=== PATIENT | female | born 1975 | race Caucasian/White ===

== ENCOUNTER → 2018-06-12 11:45 | Outpatient (CLI) | payer OTHER, SELFPAY ==
--- NOTE | 2018-06-12 11:47 | DI.MG.S_ITS ---
BILATERAL DIGITAL SCREENING MAMMOGRAM 3D/2D WITH CAD: 06/12/2018 CLINICAL: Routine screening. Comparison is made to exam dated: 08/23/2015 mammogram - [facility]. The tissue of both breasts is extremely dense, which lowers the sensitivity of mammography. Current study was also evaluated with a Computer Aided Detection (CAD) system. No significant masses, calcifications, or other findings are seen in either breast. There has been no significant interval change. IMPRESSION: NEGATIVE There is no mammographic evidence of malignancy. A 1 year screening mammogram is recommended. This exam was interpreted at Station ID: [id number]. NOTE: For mammograms, a report in lay terms will be sent to the patient. Approximately 15% of breast malignancies will not be visualized mammographically. In the management of a palpable breast mass, a negative mammogram must not discourage biopsy of a clinically suspicious lesion. Electronically Signed By: Sarahi stephenson/fabby:06/15/2018 09:06:35 letter sent: Normal Exam ACR BI-RADS Category 1: Negative 3341F
== END ==
DX: Z12.31 Encounter for screening mammogram for malignant neoplasm of breast (principal)
CPT/HCPCS: 77063; 77067

== ENCOUNTER → 2019-01-19 08:12 | Outpatient (CLI) | payer OTHER, SELFPAY ==
[2019-01-19 09:37] LABS: Add Manual Diff / Slide Review NO; Basophils Absolute Auto 0 /uL (0-100); Basophils Percent Auto 0.8 % (0-2); Eosinophils Absolute Auto 100 /uL (0-450); Eosinophils Percent Auto 1.4 % (2-4); Hematocrit 39.6 % (36-46); Hemoglobin 13.5 g/dL (12.0-16.0); Lymphocytes Absolute Auto 1000 /uL (1100-4500); Lymphocytes Percent Auto 24.1 % (25-40); Mean Corpuscular Hemoglobin 31.1 PG (26-34); Mean Corpuscular Volume 91.6 fL (80-100); Monocytes Absolute Auto 300 /uL (0-900); Monocytes Percent Auto 6.2 % (3-14); Neutrophils Absolute Auto 2900 /uL (1500-7000); Neutrophils Percent Auto 67.5 % (50-75); Platelet Count 227 X10^3/uL (150-400); Red Blood Cell Count 4.33 X10^6/uL (4.0-5.2); White Blood Cell Count 4.2 X10^3/uL (4.5-11.0)
[2019-01-19 09:55] LABS: Alanine Aminotransferase 16 IU/L (9-52); Albumin 4.3 g/dL (3.5-5.0); Albumin Globulin Ratio 1.5 (1.0-2.8); Alkaline Phosphatase 44 U/L (38-126); Aspartate Aminotransferase 18 IU/L (14-36); BUN Creatinine Ratio 21.3 (6-22); Bilirubin Total 0.5 mg/dL (0.2-1.3); Blood Urea Nitrogen 17 mg/dL (7-17); Calcium 9.1 mg/dL (8.4-10.2); Carbon Dioxide 26 mmol/L (22-32); Chloride 103 mmol/L (98-107); Cholesterol 125 mg/dL (140-199); Estimated Glomerular Filt Rate > 60.0 mL/min (>60); Globulin 2.9 g/dL (1.7-4.1); Glucose 83 mg/dL (70-100); HDL Cholesterol 46 mg/dL (40-60); HEMOLYSIS < 15 (0-50); LDL Cholesterol Calculated 63 mg/dL (<100); Potassium 4.5 mmol/L (3.4-5.1); Sodium 136 mmol/L (137-145); Total Protein 7.2 g/dL (6.3-8.2); Triglycerides 80 mg/dL (35-150)
[2019-01-19 10:36] LABS: TSH w/ Reflex to FT4 2.54 uIU/mL (0.47-4.68)
== END ==
PROVIDERS: PCP Nurse Practitioner; Visit Provider Nurse Practitioner
DX: Z00.00 Encounter for general adult medical examination without abnormal findings (principal)
CPT/HCPCS: 36415; 80053; 80061; 84443; 85025

== ENCOUNTER → 2022-11-20 07:14 | Outpatient (CLI) | payer OTHER, SELFPAY ==
--- NOTE | 2022-11-20 07:16 | DI.US.S_ITS ---
PROCEDURE: US PELVIC COMPLETE INDICATIONS: MENORRHAGIA TECHNIQUE: Real-time scanning was performed of the pelvic organs, with image documentation. Additional endovaginal scanning was necessary due to incomplete visualization of the adnexal and endometrial structures by transabdominal scanning. COMPARISON: [facility], , PELVIC COMPLETE, 09/10/2014, 5:43. FINDINGS: Uterus: Uterus is anteverted and enlarged in size at 9.2 x 4.6 x 6.8 cm. The myometrium is homogeneous. No discrete uterine fibroid is seen. The endometrium measures 10.1 mm combined thickness. No gross endometrial mass or fluid is seen. Ovaries: The right ovary measures 5.3 x 3.3 x 5.5 cm, with a calculated ovarian volume of 49.7 cc. The left ovary measures 3.3 x 2.3 x 2.8 cm, with a calculated ovarian volume of 11.1 cc. Less than 12 follicles can be seen in each ovary. Multiple anechoic structures are seen scattered in right ovary measures up to 3.4 x 2.5 x 3.4 cm in size. No adnexal masses are seen. Other: No pathologic free abdominal or pelvic fluid. Increased urine varices are noted in the pelvis. IMPRESSION: 1. Enlarged uterus. No discrete uterine fibroid. No endometrial mass or fluid. 2. Multiple simple appearing right ovarian cysts as above. No solid appearing ovarian lesion. No evidence of ovarian torsion. 3. Prominent uterine varices are noted in pelvis. We strive to produce accurate, complete, and clear reports of imaging services. To assist us in improving patient care, this report was composed using standard report templates and voice recognition software. Therefore, it may contain abnormal punctuation, insertions and/or omissions. Occasional wrong-word or sound-alike substitutions may occur. Though we review the report and make efforts to correct it, we do recommend that the report be read carefully in proper context to recognize any text inaccuracies. Dictated by: James Meredith M.D. on 11/20/2022 at 9:47 Approved by: James Meredith M.D. on 11/20/2022 at 9:50
--- NOTE | 2022-11-20 07:16 | DI.MG.S_ITS ---
BILATERAL DIGITAL SCREENING MAMMOGRAM 3D/2D WITH CAD: 11/20/2022 CLINICAL: Routine screening. Family history of breast cancer. Comparison is made to exams dated: 07/09/2022 mammogram - [facility], 06/12/2018 mammogram - [facility], and 08/23/2015 mammogram - [facility]. Both breasts are heterogeneously dense, which may obscure small masses (category c / 51-75% glandular tissue). Current study was also evaluated with a Computer Aided Detection (CAD) system. No significant masses, calcifications, or other findings are seen in either breast. There has been no significant interval change. IMPRESSION: NEGATIVE There is no mammographic evidence of malignancy. A 1 year screening mammogram is recommended. Future imaging is recommended as follows: 07/10/2023 screening mammogram. Based on the Tyrer Cuzick model (a risk assessment model) the patient's lifetime risk is 16.6% and her 10 year risk is 3.5%. According to the ACR, ACS, and NCCN guidelines, an annual breast MRI exam along with mammogram is recommended if the patient's lifetime risk is 20% or greater. This exam was interpreted at Station ID: [id number]. NOTE: For mammograms, a report in lay terms will be sent to the patient. Approximately 15% of breast malignancies will not be visualized mammographically. In the management of a palpable breast mass, a negative mammogram must not discourage biopsy of a clinically suspicious lesion. Electronically Signed By: Angie werner/fabby:11/20/2022 13:05:18 letter sent: Normal Exam ACR BI-RADS Category 1: Negative 3341F
[2022-11-20 07:40] LABS: Add Manual Diff / Slide Review NO; Basophils Absolute Auto 100 /uL (0-100); Basophils Percent Auto 1.1 % (0-2); Eosinophils Absolute Auto 100 /uL (0-450); Eosinophils Percent Auto 1.7 % (2-4); Hematocrit 39.1 % (36-46); Hemoglobin 13.5 g/dL (12.0-16.0); Lymphocytes Absolute Auto 1800 /uL (1100-4500); Lymphocytes Percent Auto 32.8 % (25-40); Mean Corpuscular HGB Conc 34.5 % (30-36); Mean Corpuscular Hemoglobin 30.6 PG (26-34); Mean Corpuscular Volume 88.7 fL (80-100); Monocytes Absolute Auto 500 /uL (0-900); Monocytes Percent Auto 8.6 % (3-14); Neutrophils Absolute Auto 3100 /uL (1500-7000); Neutrophils Percent Auto 55.8 % (50-75); Platelet Count 219 X10^3/uL (150-400); Red Blood Cell Count 4.41 X10^6/uL (4.0-5.2); White Blood Cell Count 5.5 X10^3/uL (4.5-11.0)
[2022-11-20 08:02] LABS: Alanine Aminotransferase 14 IU/L (<35); Albumin 4.4 g/dL (3.5-5.0); Albumin Globulin Ratio 1.4 (1.0-2.8); Alkaline Phosphatase 48 U/L (38-126); Aspartate Aminotransferase 20 IU/L (14-36); BUN Creatinine Ratio 23.6 (6-22); Bilirubin Total 0.5 mg/dL (0.2-1.3); Blood Urea Nitrogen 21 mg/dL (7-17); Calcium 9.4 mg/dL (8.4-10.2); Carbon Dioxide 26 mmol/L (22-32); Chloride 101 mmol/L (98-107); Cholesterol 162 mg/dL (140-199); Estimated Glomerular Filt Rate > 60 mL/min (>60); Globulin 3.2 g/dL (1.7-4.1); Glucose 84 mg/dL (70-100); HDL Cholesterol 59 mg/dL (40-60); HEMOLYSIS < 15 (0-50); LDL Cholesterol Calculated 85 mg/dL (<100); Potassium 4.1 mmol/L (3.4-5.1); Sodium 136 mmol/L (137-145); Total Protein 7.6 g/dL (6.3-8.2); Triglycerides 90 mg/dL (35-150)
[2022-11-20 08:19] LABS: Free T3, Triiodothyronine Free 4.37 pg/mL (2.77-5.27); Free T4, Direct Thyroxine 1.19 ng/dL (0.78-2.19)
[2022-11-20 08:32] LABS: Thyroid Stimulating Hormone 2.55 uIU/mL (0.47-4.68)
[2022-11-20 08:33] LABS: Creatinine Urine Random 140.4 mg/dL
[2022-11-20 08:38] LABS: Microalbumi Creatinin Ratio Ur 4.2 ug/mg CR (<30); Microalbumin Urine Random 0.6 mg/dL (0-1.6)
[2022-11-20 15:50] LABS: HIV 1 & 2 Ab/Ag 4th Gen Combo NEGATIVE (NEGATIVE); Hep C Virus Ab w/Reflex Quant NEGATIVE s/c (NEGATIVE)
== END ==
PROVIDERS: PCP Nurse Practitioner; Referring Provider Nurse Practitioner; Visit Provider Nurse Practitioner
DX: Z12.31 Encounter for screening mammogram for malignant neoplasm of breast (principal); Z80.3 Family history of malignant neoplasm of breast; Z00.00 Encounter for general adult medical examination without abnormal findings; N92.0 Excessive and frequent menstruation with regular cycle; N85.2 Hypertrophy of uterus; N83.201 Unspecified ovarian cyst, right side; Z11.4 Encounter for screening for human immunodeficiency virus [HIV]; Z11.59 Encounter for screening for other viral diseases
CPT/HCPCS: 36415; 76830; 76856; 77063; 77067; 80053; 80061; 82043; 82570; 84439; 84443; 84481; 85025; 86803; 87389; 93975

== ENCOUNTER 2023-01-08 12:39 | Day surgery (SDC) | payer OTHER, SELFPAY ==
[2023-01-08 13:11] VITALS: BP 120/74; PULSE 72; RESP 17; TEMP 36.4; O2SAT 100; BMI 23.0
[2023-01-08] MEDS: LACTATED RINGERS 1,000 ML 84 ML IV (13:18)
--- NOTE | 2023-01-08 14:11 | P.HP_ITS ---
History of Present Illness History of Present Illness Date Patient Seen: 01/08/23 Time Patient Seen: 14:11 Chief complaint: SDC Narrative: Karma is a 47-year-old woman who is here for a screening colonoscopy. She has never had 1 before. She has no known family history of colon cancer. [facility] Medical History (Updated 01/08/23 @ 14:11 by Chemo Sorto MD) Varicosities of pelvis Surgical History H/O LEEP Social History marital status: household members: family Smoking Status: Never smoker alcohol intake: never substance use type: does not use Meds Home Medications and Allergies Home Medications Medication Instructions Recorded Confirmed Type fexofenadine 180 mg tablet 180 mg PO DAILY 06/04/18 01/08/23 History fluticasone propionate 50 2 spray intranasal DAILY 06/04/18 01/08/23 History mcg/actuation nasal spray,suspension (Flonase Allergy Relief) Allergies Allergy/AdvReac Type Severity Reaction Status Date / Time No Known Drug Allergies Allergy Verified 11/04/22 14:26 Exam Vital Signs (past 8 hours): - 01/08/23 13:11 Temperature 97.6 F Pulse Rate 72 Respiratory Rate 17 Blood Pressure 120/74 Pulse Oximetry 100 Oxygen Delivery Method Room Air Oxygen Delivery Method Room Air Const General: healthy appearing Assessment & Plan Assessment and plan (1) Colon cancer screening: Status: Acute Plan We reviewed the risks and benefits of colonoscopy for colon cancer screening and she would like to proceed.
[2023-01-08 14:45] VITALS: BP 109/75; PULSE 86; RESP 15; TEMP 36.2; O2SAT 97
--- NOTE | 2023-01-08 14:45 | PM.OP.COLON ---
Operative Date/Time/Diagnoses Date of procedure: 01/08/23 Time of procedure: 14:45 Pre-op diagnosis: Colon cancer screening Post-op diagnosis: same Procedure & Clinicians Study performed: Colonoscopy Same procedure as scheduled: Yes Surgeon: Chemo Sorto Procedure Notes Procedure in detail: Surgeon: Chemo Sorto MD Anesthesia: Vidal Mondragon D.O. Procedure: The patient was brought to the endoscopy suite, placed in left lateral decubitus position. The patient was connected to monitoring devices. A time-out was performed. Sedation was administered. Once the patient was adequately sedated, a digital rectal exam was performed and was normal. The scope was then inserted and advanced to the cecum where the appendiceal orifice was identified and photographed. The scope was then slowly withdrawn over greater than 6 minutes. The prep was excellent. The mucosa was thoroughly inspected. No abnormalities were seen. The scope was retroflexed in the rectum. No abnormalities were seen. The scope was straightened and removed. The patient was awakened and brought to recovery. Scope withdrawal time: 6 minutes Sedation time: 16 minutes EBL: 0 Findings: Normal colon Post-procedure Recommendations: Colonoscopy in 10 years Disposition: PACU
[2023-01-08 14:50] VITALS: BP 119/78; PULSE 73; RESP 11; TEMP 36; O2SAT 100
[2023-01-08 14:55] VITALS: BP 117/78; PULSE 70; RESP 21; TEMP 36.4; O2SAT 100
[2023-01-08 14:58] VITALS: BP 112/77; PULSE 63; RESP 14; TEMP 36.3; O2SAT 100
== END 2023-01-08 15:30 | disposition home or self-care (01) ==
PROVIDERS: PCP Nurse Practitioner; Referring Provider Surgery; Visit Provider Surgery
PROC: 0DJD8ZZ Inspection of Lower Intestinal Tract, Via Natural or Artificial Opening Endoscopic (ICD-10-PCS; CPT 45378; principal; 2023-01-08 14:00)
DX: Z12.11 Encounter for screening for malignant neoplasm of colon (principal)
CPT/HCPCS: 45378; J2704

== ENCOUNTER 2023-06-25 08:14 | Inpatient (IN) | payer OTHER, SELFPAY ==
[2023-06-17 07:44] VITALS: BMI 22.5
[2023-06-25] VITALS (16 sets, daily range): BP systolic 80–124; BP diastolic 31–74; PULSE 56–69; RESP 10–20; TEMP 36.2–36.9; O2SAT 98–100; BMI 22.5
--- NOTE | 2023-06-25 | PATH_ITS ---
[facility] Accession Number: [id number] No. of containers..01 Tissue . 01 Material submitted: . uterus - UTERUS AND BILATERAL TUBES . 01 Diagnosis: Uterus and Bilateral Tubes; Hysterectomy and Bilateral Salpingectomy: Cervix: Mild chronic cervicitis; negative for dysplasia and malignancy. Endometrium: Secretory phase endometrium without significant cytologic atypia, hyperplasia, or malignancy. Benign endometrial polyp, 1.3 cm in greatest dimension. Adenomyosis also present. Benign intramural leiomyomas, up to 0.6 cm in greatest dimension. Benign bilateral fallopian tubes and paratubal cysts. [facility] 07/01/2023 1704 Local . 01 Electronically signed: . Shamika Carrero MD, Pathologist NPI- [id number] . 01 Gross description: . The specimen is received in formalin labeled with the patient's name, , and uterus with bilateral tubes, and consists of an intact uterus (143 grams, 8.5 cm superior to inferior, 8.9 cm medial to lateral, and 4.6 cm anterior to posterior), with attached cervix (3.2 x 3.0 cm), with two detached, unoriented, fimbriated fallopian tubes (6.8 x 0.7 cm and 6.2 x 0.5 cm respectively), with no additional adnexa identified. . The serosa is rob and roughened with no evidence of hemorrhage identified. The ectocervix is pink-rob, smooth, and glistening with a circular os measuring 0.5 cm in diameter. The anterior paracervical margin is inked blue while the posterior paracervical margin is inked black. The endocervical canal has rob herringbone mucosa and measures 2.7 cm in length. The endometrial cavity measures 2.5 cm from cornu to cornu, and 5.2 cm in length with red, lush endometrium that averages 0.2 cm thick. A red-rob polypoid structure detached from the endometrium measures 1.3 x 0.7 x 0.3 cm. No additional lesions are identified. The myometrium is pink-rob and trabecular with two well-circumscribed white whorled nodules located intramurally ranging from 0.2 to 0.6 cm in greatest dimension. No hemorrhage or necrosis is identified. . Both fallopian tubes have congested, smooth serosa with multiple cystic structures ranging from 0.1 to 0.2 cm in greatest dimension filled with cloudy serous fluid. Sectioning reveals unremarkable stellate lumen. . [employer] sections are submitted as follows: A1: Anterior cervix. A2: Posterior cervix. A3: Anterior full thickness section. A4: Posterior full thickness section. A5: Endometrial polypoid structure. A6: Nodules. A7: Serosa. A8: Longer fallopian tube to include one-half of bisected fimbriae and cross-sections. A9: [place] fallopian tube to include one-half of bisected fimbriae and cross-sections. ([id number]) /DOREEN 06/26/2023 1031 Local . 01 Pathologist provided ICD-10: N84.0, N92.0, N85.2, N94.6, D25.9 . 01 CPT . 505454 Specimen Comment: A courtesy copy of this report has been sent to [phone] Performed at: 01 [facility] [address] [place] [address], [place], [place] [id number] MD Ahmet Cummins MD Phone: [phone]
[2023-06-25] MEDS: LACTATED RINGERS 1,000 ML 42 ML IV ×2 (09:02→12:51)
[2023-06-25] MEDS: ACETAMINOPHEN 325 MG TABLET 975 MG PO (09:03)
[2023-06-25] MEDS: SCOPOLAMINE 1 PATCH TOP (09:03)
--- NOTE | 2023-06-25 09:51 | PM.PREOP ---
Pre-operative Note COVID-19 COVID-19 status: Not tested Interval Note History & Physical reviewed/Exam performed by Physician: Yes Changes to H&P: No
[2023-06-25] MEDS: CEFAZOLIN 2 GM/100 ML PREMIX 100 ML IV (10:05)
[2023-06-25] MEDS: BUPIVACAINE 0.5% (PF) 30 ML, EPINEPHrine 0.15 MG INJ (10:58)
[2023-06-25] MEDS: ROPIVACAINE 0.2% PF 2 MG/ML 10ML AMP 20 ML INJ (11:54)
--- NOTE | 2023-06-25 12:03 | PM.GYNOP.1 ---
Operative Date/Time/Diagnoses Date of procedure: 06/25/23 Time of procedure: 10:20 Pre-op diagnosis: Menometrorrhagia Enlarged uterus Post-op diagnosis: other ( same as above, pelvic adhesions, minimal pelvic endometriosis) Procedure & Clinicians Procedure: Procedures Operation Date: 06/25/23 09:45 Actual Procedure Side Surgeon p Laparoscopic Total Hysterectomy with bilateral salpingectomy Deshawn Tobin MD Indications: Karma is a 47-year-old , LMP 2 wks ago, who presents today in referral from her primary care provider for evaluation of extremely heavy periods, severe dysmenorrhea and chronic pelvic pain which has steadily worsened over the last 2 or 3 years. She experienced menarche at age 14 and has always had heavy but regular periods. She is had a single which resulted in a spontaneous vaginal 20 years ago. Menses remain regular but for the last 2-3 years her periods have become progressively more painful and heavy with passage of large clots and overflows occurring typically at around the 2nd and/or 3rd day of her cycle. She denies intermenstrual bleeding or postcoital bleeding however. She does have history of abnormal Paps with a LEEP performed in 2014 and normal, HPV negative Paps since that time with her most recent Pap performed on March 10, 2023. In discussing options for evaluation/treatment, patient is averse to use of hormones including but not limited to Depo-Provera, Nexplanon, Mirena, or oral contraceptives. Pelvic ultrasound performed in October 2022 showed: FINDINGS:? ?? Uterus:? Uterus is anteverted and enlarged in size at 9.2 x 4.6 x 6.8 cm. The myometrium is homogeneous.? No discrete uterine fibroid is seen.? The endometrium measures 10.1 mm combined thickness.? No gross endometrial mass or fluid is seen. ? Ovaries:? The right ovary measures 5.3 x 3.3 x 5.5 cm, with a calculated ovarian volume of 49.7 cc. The left ovary measures 3.3 x 2.3 x 2.8 cm, with a calculated ovarian volume of 11.1 cc.? Less than 12 follicles can be seen in each ovary.? Multiple anechoic structures are seen scattered in right ovary measures up to 3.4 x 2.5 x 3.4 cm in size.? No adnexal masses are seen. ? Other:? No pathologic free abdominal or pelvic fluid.? Increased uterine varices are noted in the pelvis.? ? IMPRESSION:? 1. Enlarged uterus.? No discrete uterine fibroid.? No endometrial mass or fluid. ? 2. Multiple simple appearing right ovarian cysts as above.? No solid appearing ovarian lesion.? No evidence of ovarian torsion. ? 3. Prominent uterine varices are noted in pelvis.? Options for further evaluation and/or treatment of the patient's menorrhagia, severe dysmenorrhea, and chronic pelvic pain discussed at length. Patient is averse to use of any hormone therapy due to previous experiences with such treatments and very much wants definitive therapy as opposed to considering endometrial ablation. As result we discussed total laparoscopic hysterectomy with bilateral salpingectomy and preservation of ovaries if those ovaries are normal in appearance at the time of surgery. Patient advised that endometrial sampling may be required by her insurance company prior to approving hysterectomy but the endometrial stripe by ultrasound is completely unremarkable and within normal limits as far as thickness goes therefore endometrial sampling was not felt to be warranted at this time. Surgical case request for total laparoscopic hysterectomy with bilateral salpingectomy submitted. She presents today for her scheduled procedure. Surgeon: Deshawn Tobin Director Strategic Account Management: Eileen Chaves Anesthesia Type: General Operative Notes Findings: The uterus is diffusely enlarged and has clear surface blebs consistent with adenomyosis. There were no abnormalities noted in the anterior cul-de-sac. Both fallopian tubes appeared to be normal. The anti-hilar surface of the left ovary is adherent to the lateral aspect of the uterus adjacent to the insertion of the uterosacral ligament on the left. Dense and filmy adhesions were also present on the posterior aspect of the cervix to the epiploica of the rectosigmoid. A peritoneal implant of endometriosis was also seen and coagulated during the course of the procedure. A superficial endometriotic implant involving the surface of the left ovary was also destroyed with bipolar current. The right fallopian tube and ovary were both normal and there was no adhesions in the right ovarian fossa. The remainder of the abdomen was normal to laparoscopic inspection. Closure Type: primary Specimen(s): left tube, right tube and uterus Applied: catheter Blood products transfused: none Procedure in detail: With the patient in modified dorsal lithotomy position preparations were made by prepping and draping the patient in usual manner for vaginal surgery and insertion of Ross catheter. A pre-surgical time-out was then taken in accordance with [facility] policy. A bivalve speculum was then placed in the vagina and the cervix visualized. The anterior lip of the cervix was then grasped with a single-tooth tenaculum. The uterus was sounded to [] cm, the endocervical canal dilated slightly, and a VCare uterine manipulator with a medium colpotomy cup was placed. The umbilicus was then infiltrated with 0.5% Marcaine with epinephrine. A 1 cm umbilical incision was made transversely and a Veress needle was used to insufflate the abdominal cavity with carbon dioxide. Once the abdomen was appropriately insufflated, a 5 mm trocar and sleeve were then placed through the umbilical incision. The scope was placed through the trocar and the initial assessment of the intra-abdominal contents carried out. A 2nd and 3rd 5 mm port was then placed 1st in the right mid quadrant from then the left mid quadrant by infiltration of the skin and subcutaneous tissues, a 1 cm transverse incision and insertion of the 5 mm bladeless port. Using a 3 puncture technique, the abdomen and pelvis were inspected laparoscopy and photographically documented. Uterus is mobilized with the VCare manipulator and attention turned to the left adnexa. The surface endometriosis of the left ovary was coagulated with bipolar current in the anti-hilar surface of the ovary was dissected away from the lateral aspect of the lower uterine segment/cervix using a combination of sharp and blunt dissection. Hemostasis was achieved with the power Seal device. The distal tube was then grasped and the fimbria ovarica divided after coagulation with the PowerSeal device. The dissection was then carried out toward the cornua and the fallopian tube amputated. The tube was removed through a 5 mm port and dissection was then carried down using the PowerSeal device so as to divide the utero-ovarian ligament and the round ligament with blunt and sharp dissection of the broad down to the level of the uterine artery. The uterine artery was then skeletonized after development of a bladder flap, coagulated, and divided. Once hemostasis was assured on the left side attention was turned to the right and the tube, utero-ovarian ligament, round ligament, and broad ligament were dissected in a fashion exactly the same as it had been on the left. The right uterine artery was then visualized after skeletonization and coagulated and divided. The uterus was seen to yumiko after coagulation of both your arteries and the cup was identified through the vaginal muscularis at its insertion with the body of the cervix. Circumferential excision of the vaginal cup was accomplished without difficulty using monopolar current and the uterus mobilized. The uterus was then removed through the vagina and the vaginal cuff closed [id number] with a series of 0 Vicryl [id number] stitches. Hemostasis was excellent, the abdomen was re-insufflated, and the pelvis inspected laparoscopically. The pelvis was inspected for any abnormality or bleeding, and the ureters were each seen to be peristalsing freely. With complete hemostasis assured, the pneumoperitoneum was vented and the ports removed. All of the 5 mm ports were then closed with 4-0 Monocryl on the skin using inverted interrupted sutures. Skin glue was placed and after the glue was dried, an appropriate dressing was applied. The case was then terminated, the patient awakened, and then transferred to PACU after having tolerated the procedure well. Complications: none Post-operative Condition: stable Disposition: PACU Plan for aftercare: Recovery in ambulatory surgery in discharge home later today if pain is under control and she is tolerating oral intake well.
[2023-06-25] MEDS: HYDROMORPHONE 1 MG INJ IV ×2 (12:10→12:15)
[2023-06-25] MEDS: OXYCODONE IR 5 MG TABLET PO ×3 (12:27→18:27)
[2023-06-25] MEDS: ONDANSETRON 4 MG/2 ML INJ IV (12:27)
[2023-06-25] MEDS: LACTATED RINGERS 1,000 ML 100 ML IV ×2 (13:45→23:11)
[2023-06-25] MEDS: IBUPROFEN 600 MG TABLET PO ×2 (18:26→22:57)
[2023-06-25] MEDS: ACETAMINOPHEN 325 MG TABLET 650 MG PO ×2 (18:27→22:58)
[2023-06-25] MEDS: DOCUSATE 100 MG CAPSULE 200 MG PO (21:49)
[2023-06-26 00:28] VITALS: BP 110/63; PULSE 70; RESP 16; TEMP 36.5; O2SAT 99
[2023-06-26] MEDS: IBUPROFEN 600 MG TABLET PO (04:59)
[2023-06-26] MEDS: ACETAMINOPHEN 325 MG TABLET 650 MG PO (04:59)
[2023-06-26 05:00] VITALS: BP 109/64; PULSE 60; RESP 18; TEMP 36.2; O2SAT 98
[2023-06-26 06:06] LABS: Add Manual Diff / Slide Review NO; Basophils Absolute Auto 0 /uL (0-100); Basophils Percent Auto 0.3 % (0-2); Eosinophils Absolute Auto 0 /uL (0-450); Eosinophils Percent Auto 0.1 % (2-4); Hematocrit 34.9 % (36-46); Hemoglobin 12.1 g/dL (12.0-16.0); Lymphocytes Absolute Auto 1300 /uL (1100-4500); Lymphocytes Percent Auto 14.9 % (25-40); Mean Corpuscular HGB Conc 34.5 % (30-36); Mean Corpuscular Hemoglobin 31.2 PG (26-34); Mean Corpuscular Volume 90.4 fL (80-100); Monocytes Absolute Auto 700 /uL (0-900); Monocytes Percent Auto 7.2 % (3-14); Neutrophils Absolute Auto 7000 /uL (1500-7000); Neutrophils Percent Auto 77.5 % (50-75); Platelet Count 185 X10^3/uL (150-400); Red Blood Cell Count 3.86 X10^6/uL (4.0-5.2); Red Cell Distribution Width 13.3 % (11.6-14.8)
--- NOTE | 2023-06-26 06:30 | PC.NURSE ---
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 x3 lap sites on abdomen, drsgs are CDI. 2-10/31 pain adequately controlled w/ scheduled Tylenol & Ibuprofen. OOB w/ SBA to bathroom, tolerated ambulation well. Denies nausea. Cody d/c'd @ 0500.
[2023-06-26 07:00] VITALS: BP 114/53; PULSE 51; RESP 18; TEMP 37.2; O2SAT 99
--- NOTE | 2023-06-26 08:37 | PC.NURSE ---
Day shift: Pt denies any nausea. Good oral intake and BP WNL. Disconnected from IV fluid for safety. Pt Voided 425 mls and bladder scan read 20 mls residual. Family in room for support. Pt expecting to d/c home today. Independent in room.
[2023-06-26] MEDS: DOCUSATE 100 MG CAPSULE 200 MG PO (09:16)
--- NOTE | 2023-06-26 09:34 | P.DS_ITS ---
History of Present Illness History of Present Illness Date Patient Seen: 06/26/23 Time Patient Seen: 09:35 Chief complaint: Menorrhagia, Bulky uterus Narrative: Kamra is a 47-year-old , LMP 2 wks ago, who presents today in referral from her primary care provider for evaluation of extremely heavy periods, severe dysmenorrhea and chronic pelvic pain which has steadily worsened over the last 2 or 3 years. She experienced menarche at age 14 and has always had heavy but regular periods. She is had a single which resulted in a spontaneous vaginal 20 years ago. Menses remain regular but for the last 2-3 years her periods have become progressively more painful and heavy with passage of large clots and overflows occurring typically at around the 2nd and/or 3rd day of her cycle. She denies intermenstrual bleeding or postcoital bleeding however. She does have history of abnormal Paps with a LEEP performed in 2014 and normal, HPV negative Paps since that time with her most recent Pap performed on March 10, 2023. In discussing options for evaluation/treatment, patient is averse to use of hormones including but not limited to Depo-Provera, Nexplanon, Mirena, or oral contraceptives. Pelvic ultrasound performed in October 2022 showed: FINDINGS:? ?? Uterus:? Uterus is anteverted and enlarged in size at 9.2 x 4.6 x 6.8 cm. The myometrium is homogeneous.? No discrete uterine fibroid is seen.? The endometrium measures 10.1 mm combined thickness.? No gross endometrial mass or fluid is seen. ? Ovaries:? The right ovary measures 5.3 x 3.3 x 5.5 cm, with a calculated ovarian volume of 49.7 cc. The left ovary measures 3.3 x 2.3 x 2.8 cm, with a calculated ovarian volume of 11.1 cc.? Less than 12 follicles can be seen in each ovary.? Multiple anechoic structures are seen scattered in right ovary measures up to 3.4 x 2.5 x 3.4 cm in size.? No adnexal masses are seen. ? Other:? No pathologic free abdominal or pelvic fluid.? Increased uterine varices are noted in the pelvis.? ? IMPRESSION:? 1. Enlarged uterus.? No discrete uterine fibroid.? No endometrial mass or fluid. ? 2. Multiple simple appearing right ovarian cysts as above.? No solid appearing ovarian lesion.? No evidence of ovarian torsion. ? 3. Prominent uterine varices are noted in pelvis.? Options for further evaluation and/or treatment of the patient's menorrhagia, severe dysmenorrhea, and chronic pelvic pain discussed at length. Patient is averse to use of any hormone therapy due to previous experiences with such treatments and very much wants definitive therapy as opposed to considering endometrial ablation. As result we discussed total laparoscopic hysterectomy with bilateral salpingectomy and preservation of ovaries if those ovaries are normal in appearance at the time of surgery. Patient advised that endometrial sampling may be required by her insurance company prior to approving hysterectomy but the endometrial stripe by ultrasound is completely unremarkable and within normal limits as far as thickness goes therefore endometrial sampling was not felt to be warranted at this time. Surgical case request for total laparoscopic hysterectomy with bilateral salpingectomy submitted. She is admitted now for her scheduled procedure. Discharge Providers Provider Date of admission: 06/25/23 08:14 Discharge Date: 06/26/23 Primary care physician: BLAISE Gutierrez Discharge provider: Deshawn Tobin MD Summary Hospital Course Discharge Diagnosis: Perimenopausal menorrhagia Uterine enlargement Hospital Course: Karma was admitted on 06/25/2023 and underwent uneventful total laparoscopic hysterectomy with bilateral salpingectomy. Full details of the procedure well summarized on my operative. Following surgery the patient has extremely well prompt return bowel and bladder function, she is ambulating independently, tolerating, her pain is pain medications. She will be discharged at this time to home in an afebrile normotensive condition after counseling regarding precautionary symptoms, limitations activity, medications, and plans for follow- up which will be in 2-3 weeks. Medications at discharge will include resumption all pre admission medications as well as oxycodone 5 mg p.o. Q 4-6 hours as needed pain, dispense 20 with no refills, and Cipro 500 mg p.o. b.i.d. x5 days for antibiotic prophylaxis following catheterization. Status at Discharge Cognitive/behavioral status at discharge: oriented Functional status at discharge: independent ambulation Overall status at discharge: patient is progressing back to baseline Time Spent with Patient Time spent: Less than 30 minutes Exam Vital Signs (past 8 hours): - 06/26/23 05:00 06/26/23 07:00 06/26/23 07:00 Temperature 97.2 F L 98.9 F Pulse Rate 60 51 L Respiratory Rate 18 18 Blood Pressure 109/64 114/53 L Pulse Oximetry 98 99 Oxygen Delivery Method Room Air Oxygen Flow Rate 0 0 Oxygen Delivery Method Room Air Oxygen Flow Rate 0 Const General: cooperative and comfortable Nutritional Appearance: average body habitus Orientation: alert and oriented x3 HENMT Head: normal to inspection, atraumatic and abrasion Ears: hearing grossly normal bilaterally Face and sinus: face symmetric Eyes General: appearance normal, both eyes and all related structures Conjunctivae: conjunctivae normal Sclera: sclerae normal EOM: EOM intact bilaterally Neck Neck: normal visual inspection Resp Effort & Inspection: normal respiratory effort and able to speak in complete sentences Auscultation: clear to auscultation bilaterally Cardio Rate: regular rate Rhythm: regular rhythm Heart Sounds: S1 normal, S2 normal and no murmurs GI Inspection: normal to inspection and incision (Surgical dressings clean and dry) Palpation: soft, no hepatosplenomegaly and tender (Mild, diffuse postsurgical tenderness) External Female Exam: other (No significant bleeding noted) Extrem General: no calf tenderness Psych Appearance: grossly normal Mental Status: mental status grossly normal Speech and Movement: speech and movement normal Mood: congruent mood Affect: normal affect Attitude: cooperative Thought Process: normal Thought Content: normal Judgment: judgment good Objective Labs 06/26/23 05:59 Labs: Laboratory Results - last 24 hr 06/26/23 05:59 WBC 9.0 RBC 3.86 L Hgb 12.1 Hct 34.9 L MCV 90.4 MCH 31.2 MCHC 34.5 RDW 13.3 Plt Count 185 Neut % (Auto) 77.5 H Lymph % (Auto) 14.[address] [place] % (Auto) 7.2 Eos % (Auto) 0.1 L Baso % (Auto) 0.3 Neut # (Auto) 7000 Lymph # (Auto) 1300 [place] # (Auto) 700 Eos # (Auto) 0 Baso # (Auto) 0 PFSH Medical History (Updated 06/17/23 @ 08:08 by Estella Heller RN) History of COVID-19 (03/2023) Plantar warts Seasonal allergies Vertigo Painful menstrual periods Human papilloma virus (~2014) Abnormal Pap smear of cervix (~2014) Kidney stones Varicosities of pelvis Surgical History (Updated 06/17/23 @ 08:04 by Estella Heller RN) History of colposcopy (01/08/23) History of surgery (11/2022) Anesthesia H/O removal of cyst H/O LEEP (~12/2014) Family History Father History of knee surgery Mother Cancer History of heart disease Hypertension Stroke Grandfather History of heart disease S/P triple vessel bypass Grandmother Breast cancer Pneumonia Grandfather No problems noted. Grandmother History of heart disease Social History marital status: household members: spouse and children Smoking Status: Never smoker alcohol intake: current substance use type: does not use Discharge Assessment & Plan Assessment and Plan Assessment: Perimenopausal menorrhagia Uterine enlargement Minimal pelvic endometriosis with adhesions Status post total laparoscopic hysterectomy with bilateral salpingectomy and lysis of adhesions Plan of Treatment: Routine postoperative care with follow-up planned for 2-3 weeks following surgery. Discharge Plan Discharge Plan Patient Disposition: Home Provider Discharge Comment: Please review the written instructions you received when you were discharged from hospital. Your follow-up appointment is set 3 weeks after procedure forward to seeing you then. If however in the meanwhile you have any questions, concerns, or problems, please contact me either the office phone at [phone], or via the patient Discharge orders & Medications Prescriptions: New oxycodone 5 mg Tablet 5 mg PO Q4HR PRN (Reason: Pain, Moderate (4-6)) Qty: 20 0RF ciprofloxacin HCl [Cipro] 500 mg tablet 500 mg PO Q12H 5 Days Qty: 10 0RF Continued fexofenadine 180 mg tablet 180 mg PO DAILY PRN (Reason: Seasonal allergies) fluticasone propionate [Flonase Allergy Relief] 50 mcg/actuation spray,suspension 2 spray NASAL DAILY PRN (Reason: Seasonal allergies) Follow up/Referrals: Roxanne Grover ARNP [Primary Care Provider] - Deshawn Tobin MD [Physician] - Discharge Health Status Multidrug resistant organism: No MDRO Diet/Activity/Treatments Diet: Diet as Tolerated Activity: As tolerated Other treatments: [id number] Tylenol and/or ibuprofen may be used for additional pain relief. Ksbx-mrj-thqmyzz stool softeners and/or MiraLax may be used as needed for constipation. Skin/Wound/Dressing Care Report to your healthcare provider any signs of infection, such as:: chills, fever, increased pain, unusual drainage and unusual redness Dressing: Dressings should be removed on the morning of 06/27/2023 Visit Report/Discharge Packet Instructions: DI for Hysterectomy, DI for Laparoscopy, DI for Prescription Opioid Use Stand Alone Forms: Surgery Discharge Discharge Data Primary Care Provider: Roxanne Grover VTE Deep Vein Thrombosis/Pulmonary Embolism Present on Admission: No
--- NOTE | 2023-06-26 11:04 | CM.DANOTE ---
Patient is a 48 yo female who was admitted on 06/25/23 for Dysmenorrhea. Pt has [employer] for insurance and her PCP is Roxanne Grover. EMR was reviewed. Per OBGYN, pt is and admitted for surgery for ademyosis and tolerated procedure well. Pt's pain is controlled, has voided independently and tolerating diet and SBA to BR and medically stable to d/c home today with no barriers to discharge. Per RN, pt agreeable to d/c home today and has supportive family and no concerns noted. Patient lives in [place] with spouse and Dtr and has lots of local family support bedside and they plan to transport her home today and no concerns at this time or anticipated discharge needs. Pt is active and independent at baseline, drives, and works. Plan: Patient to d/c home via family POV today and outpt f/u with OBGYN and no further SW needs at this time. 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 Primary Language Welsh Director Of Home Economics Required No Height 172.72 cm Weight 67.132 kg Body Mass Index (BMI) 22.5 Hearing Ability Normal Visual Assist Magnifying Glass Dentition Type Teeth, Natural Present Barriers to Learning None Hx Anesthesia Reactions No Hx Family Anesthesia Reaction No Hx Malignant Hyperthermia No Hx Blood Transfusions No Hx Blood Transfusion Reaction No Anesthesia Review Requested No 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 No Does patient have ULLOA/SOB No Hx Sleep Apnea No CPAP/BIPAP use not prescribed Currently Taking a Beta Milagros No Can You Climb a Flight of Stairs Without Yes SOB Hx Chest Pain No Hx SOB No Hx Syncope or Dizziness No Anti-Coagulant Therapy No Has a Glassware Selector No Cardiac Testing No Hx Pacemaker/ICD No Pacemaker Rep Required? No Cardiac Clearance Received Not Applicable Diet Type At Home Regular Dysphagia No Gastrointestinal Symptoms None Genitourinary Symptoms Pelvic Pain Chronic UTI No Urinary Catheter Present No Hx Urinary Self Catheterization No Diabetes No Patient No Lactating No Hx Drug Resistant Organism No Presence of External or Internal Medical No Devices Have you had any close contact with No someone diagnosed with COVID-19? Received a COVID vaccine? Yes Received all doses? Yes Marital Status Lives With spouse,children Current Living Arrangements Apartment/Condo Number of Floors (Floors) Two Floors Support System Child/Children,Spouse Does the Patient Have Assistance After Yes Surgery Patient Discharge Plan Description Return Home Comment pt not advised on length of stay per surgeon Feels Safe in Current Environment Yes Been Physically Hurt or Threatened By a No Person in Current Environment Do you have thoughts of harming yourself None or others? Are you currently considering suicide? No Do you have a plan to hurt yourself or No Plan others? Do You Have Any Spiritual Beliefs That No May Affect Your HC Choices? Do You Have Any Cultural Practices That No May Affect Your HC Choices? Comment Gnosticism Who Can We Speak to About Patient's Care Family, friends Identifying Code for Release of Patient Declines to issue Information Health Care Proxy/Next of Kin Lin[place] () Jessica ( daughter) Health Care Proxy Phone Number [place]: [phone] [facility]: [phone] Emergency Contact Name [place] () Jessica ( daughter) Emergency Contact Phone Number [place]: [phone] [facility]: [phone] Advance Directives? No Advance Directives on File No Power of Payable Representative No PAC Instructions Do not shave/clip surgical site,Medications to take/avoid ,No ETOH/petroleum product on skin DOS,NPO,Sensory aids, Sturdy shoes/comfortable clothes,Do not bring valuables and remove jewelry
--- NOTE | 2023-06-26 11:14 | PC.NURSE ---
Day shift: Paperwork signed and all questions answered. Pt has all personal belongings. VS WNL. Dressing remain CDI. Family in room for teachings. Takne to car via [place] at approx [phone]. Ambulating well. Pain well controlled per OCT.
== END 2023-06-26 11:17 | disposition home or self-care (01) | DRG 743 ==
PROVIDERS: Admitting Provider Obstetrics & Gynecology; PCP Nurse Practitioner; Referring Provider Obstetrics & Gynecology; Visit Provider Obstetrics & Gynecology
PROC: 0UT94ZZ Resection of Uterus, Percutaneous Endoscopic Approach (ICD-10-PCS; principal; 2023-06-25 09:45)
DX: N92.4 Excessive bleeding in the premenopausal period (principal); N73.6 Female pelvic peritoneal adhesions (postinfective); I86.2 Pelvic varices; N94.6 Dysmenorrhea, unspecified; N80.30 Endometriosis of pelvic peritoneum, unspecified; J30.2 Other seasonal allergic rhinitis
CPT/HCPCS: 58552; 81025; 85025; J0171; J0690; J1100; J1170; J1885; J2250; J2405; J2704; J2795; J3010

== ENCOUNTER → 2024-05-21 11:06 | Outpatient (CLI) | payer OTHER, MEDICAID, SELFPAY ==
[2023-06-25 12:58] VITALS: BMI 22.5
--- NOTE | 2024-05-21 | DI.MG.S_ITS ---
BILATERAL DIGITAL SCREENING MAMMOGRAM 3D/2D WITH CAD: 05/21/2024 CLINICAL: Routine screening. Family history of breast cancer. Comparison is made to exams dated: 11/20/2022 mammogram - [facility], 07/09/2022 mammogram - [facility], and 06/12/2018 mammogram - [facility]. The breasts are heterogeneously dense, which may obscure small masses (category c / 51-75% glandular tissue). Current study was also evaluated with a Computer Aided Detection (CAD) system. No significant masses, calcifications, or other findings are seen in either breast. There has been no significant interval change. IMPRESSION: NEGATIVE There is no mammographic evidence of malignancy. A 1 year screening mammogram is recommended. Based on the Tyrer Cuzick model (a risk assessment model) the patient's lifetime risk is 16.1% and her 10 year risk is 3.7%. According to the ACR, ACS, and NCCN guidelines, an annual breast MRI exam along with mammogram is recommended if the patient's lifetime risk is 20% or greater. This exam was interpreted at Station ID: [id number]. NOTE: For mammograms, a report in lay terms will be sent to the patient. Approximately 15% of breast malignancies will not be visualized mammographically. In the management of a palpable breast mass, a negative mammogram must not discourage biopsy of a clinically suspicious lesion. Electronically Signed By: Rosa Elena Zaidi M.D., Ph.D. [email or web address]:05/25/2024 10:22:28 letter sent: Normal Exam ACR BI-RADS Category 1: Negative
== END ==
LOC: MAMMO 11:09
PROVIDERS: PCP Nurse Practitioner; Referring Provider Nurse Practitioner; Visit Provider Nurse Practitioner
DX: Z12.31 Encounter for screening mammogram for malignant neoplasm of breast (principal); R92.333 Mammographic heterogeneous density, bilateral breasts; Z80.3 Family history of malignant neoplasm of breast
CPT/HCPCS: 77063; 77067

== ENCOUNTER → 2025-05-24 13:59 | Outpatient (CLI) | payer OTHER, SELFPAY ==
[2023-06-25 12:58] VITALS: BMI 22.5
--- NOTE | 2025-05-24 14:02 | DI.MG.S_ITS ---
MM screening mammo BI: 05/24/2025. BI-RADS: 1 CLINICAL: 50-year old female for bilateral screening mammogram. Tyrer-Cuzick lifetime risk of 9.3%. No personal or first-degree family history of breast cancer. Current reported family history of breast cancer: maternal grandmother. PRIOR EXAMS 05/21/2024, 11/20/2022, 07/09/2022, 06/12/2018. MAMMOGRAPHY TECHNIQUE: 2D and 3D (tomosynthesis) digital mammographic views obtained, with additional images as needed for full coverage. Current study was also evaluated with a Computer Aided Detection (CAD) system. DENSITY C. The breasts are heterogeneously dense, which may obscure small masses. MAMMOGRAPHY FINDINGS Bilateral: No suspicious mass, asymmetry, microcalcification, or other abnormality seen. IMPRESSION: * No evidence of malignancy. RECOMMENDATIONS Bilateral * Annual screening mammography. OVERALL ASSESSMENT CATEGORY BI-RADS-1: Negative. The [employer] recommends annual screening mammography beginning at age 40 for women with average risk of breast cancer. ELECTRONICALLY SIGNED: Tushar Benavidez M.D. on 05/25/2025 at 07:28:46 AM PT Interpreting Station ID: [id number]
== END ==
LOC: MAMMO 14:01
PROVIDERS: PCP Nurse Practitioner Family; Referring Provider Nurse Practitioner Family; Visit Provider Nurse Practitioner Family
DX: Z12.31 Encounter for screening mammogram for malignant neoplasm of breast (principal); R92.333 Mammographic heterogeneous density, bilateral breasts; Z80.3 Family history of malignant neoplasm of breast
CPT/HCPCS: 77063; 77067

== ENCOUNTER → 2025-06-21 14:53 | Outpatient (CLI) | payer OTHER, SELFPAY ==
[2023-06-25 12:58] VITALS: BMI 22.5
[2025-06-21 15:59] LABS: Add Manual Diff / Slide Review NO; Hematocrit 38.8 % (36-46); Hemoglobin 13.4 g/dL (12.0-16.0); Lymphocytes Absolute Auto 1500 /uL (1100-4500); Mean Corpuscular HGB Conc 34.5 % (30-36); Mean Corpuscular Hemoglobin 31.3 PG (26-34); Mean Corpuscular Volume 90.7 fL (80-100); Platelet Count 193 X10^3/uL (150-400)
[2025-06-21 16:33] LABS: Blood Urea Nitrogen 14 mg/dL (7-17); Calcium 9.4 mg/dL (8.4-10.2); Carbon Dioxide 25 mmol/L (22-32); Chloride 104 mmol/L (98-107); Cholesterol 132 mg/dL (140-199); Estimated Glomerular Filt Rate > 60 mL/min (>60); Glucose 133 mg/dL (70-99); HDL Cholesterol 61 mg/dL (40-60); HEMOLYSIS < 15 (0-50); Potassium 3.7 mmol/L (3.4-5.1); Sodium 136 mmol/L (137-145); Triglycerides 72 mg/dL (35-150)
== END ==
PROVIDERS: PCP Nurse Practitioner Family; Referring Provider Nurse Practitioner Family; Visit Provider Nurse Practitioner Family
DX: Z13.220 Encounter for screening for lipoid disorders (principal)
CPT/HCPCS: 36415; 80048; 80061; 85025